=== PATIENT | female | born 1950 | race Caucasian/White ===

== ENCOUNTER 2023-09-05 12:06 | Inpatient (IN) | payer MEDICARE, SELFPAY ==
[~2023-09-05 12:06] MED LIST: Iopamidol-370 76% 500 ML MDV (1 ML CHARGE) ONE
[2023-09-05 12:57] LABS: #Eosinphils 0.1 thou/uL (0.0-0.7); #Monocytes 0.9 thou/uL (0.11-0.59); #Neutrophils 4.6 thou/uL (1.40-6.50); %Basophils 0.4 % (0.0-1.0); %Eosinophils 1.6 % (0.0-10.0); %Lymphocytes 16.2 % (21.0-51.0); %Monocytes 13.4 % (0.0-10.0); %Neutrophils 68.1 % (42.0-75.0); Hematocrit 34.3 % (36.0-47.0); Mean Corpuscular HGB CONC 32.1 g/dL (32.0-36.0); Mean Corpuscular Volume 93.5 fl (78.0-98.0); Platelet Count 246 10x3/uL (130-400); RBC Distribution Width 13.2 % (11.5-14.5); Red Blood Cell (RBC) Count 3.67 mill/uL (4.20-5.40); White Blood Cell (WBC) Count 6.8 10x3/uL (4.8-10.8)
[2023-09-05 13:11] LABS: Prothrombin Time 14.4 sec (12.0-14.7)
[2023-09-05 13:13] LABS: PTT 20.3 sec (22.9-36.1)
[2023-09-05 13:14] LABS: INR-International Normal Ratio 1.1
[2023-09-05 13:18] LABS: Troponin I Less than 0.010 ng/mL (< 0.028)
[2023-09-05 13:33] LABS: ALT (SGPT) 111 U/L (8-55); AST (SGOT) 108 U/L (5-34); Albumin 2.8 g/dL (3.4-4.8); Alkaline Phosphatase 137 U/L (40-110); Anion Gap 16 mmol/L (10-20); BUN (Urea Nitrogen) 23 mg/dL (9.8-20.1); Bilirubin, Total 1.1 mg/dL (0.2-1.2); CK (CPK) 43 U/L (29-168); Calc. Creatinine Clearance 0 mL/min (70-130); Carbon Dioxide 16 mmol/L (23-31); Chloride 108 mmol/L (98-107); Estimated GFR 72; Globulin 2.9 g/dL (2.4-3.5); Glucose 93 mg/dL (80-115); Potassium 4.2 mmol/L (3.5-5.1); Protein, Total 5.7 g/dL (5.8-8.1); Sodium 136 mmol/L (136-145)
[2023-09-05] MEDS ORDERED: Aspirin 300 MG Suppository ONE (15:23)
[2023-09-05] MEDS ORDERED: Ondansetron PF 4 MG/2 ML Vial IVP PRN (15:24)
[2023-09-05] MEDS ORDERED: Glucagon 1 MG/ML KIT IM PRN (16:24)
[2023-09-05] MEDS ORDERED: Dextrose 5% in Water 1,000 ML IV PRN (16:24)
[2023-09-05] MEDS ORDERED: Dextrose 50% Abboject 50 ML SYRINGE SLOW IVP PRN (16:24)
[2023-09-05] MEDS ORDERED: HumaLOG 300 UNITS/3 ML VIAL SC PRN ×2 (16:24)
[2023-09-05 17:26] LABS: Digoxin Less than 0.15 ng/mL (0.8-2.0)
[2023-09-05 17:58] VITALS: BMI 22.8
[2023-09-05] MEDS: Lactated Ringer's 1,000 ML IV SCH ×2 (18:18→20:22)
[2023-09-05 20:23] LABS: Free T4 (Free Thyroxine) Greater than 5.00 ng/dL (0.70-1.48)
[2023-09-05] MEDS ORDERED: Metoprolol Tartrate 5 MG/5 ML VIAL IVP SCH (22:15)
[2023-09-06] MEDS: Lactated Ringer's 1,000 ML IV SCH (05:54)
[2023-09-06 06:43] LABS: #Eosinphils 0.1 thou/uL (0.0-0.7); #Monocytes 0.7 thou/uL (0.11-0.59); #Neutrophils 3.2 thou/uL (1.40-6.50); %Basophils 0.6 % (0.0-1.0); %Eosinophils 2.5 % (0.0-10.0); %Lymphocytes 21.5 % (21.0-51.0); %Monocytes 12.9 % (0.0-10.0); %Neutrophils 62.1 % (42.0-75.0); Hematocrit 28.8 % (36.0-47.0); Hemoglobin 9.1 g/dL (12.0-16.0); Mean Corpuscular HGB CONC 31.6 g/dL (32.0-36.0); Mean Corpuscular Hemoglobin 29.7 pg (27.0-31.0); Mean Corpuscular Volume 94.1 fl (78.0-98.0); Mean Platelet Volume 11.3 fL (7.4-10.4); Platelet Count 244 10x3/uL (130-400); RBC Distribution Width 13.5 % (11.5-14.5); Red Blood Cell (RBC) Count 3.06 mill/uL (4.20-5.40); White Blood Cell (WBC) Count 5.1 10x3/uL (4.8-10.8)
[2023-09-06 06:50] LABS: Hemoglobin A1c 5.6 % (4.0-6.0)
[2023-09-06 07:08] LABS: Anion Gap 12 mmol/L (10-20); BUN (Urea Nitrogen) 20 mg/dL (9.8-20.1); Calc. Creatinine Clearance 69 mL/min (70-130); Carbon Dioxide 21 mmol/L (23-31); Chloride 109 mmol/L (98-107); Potassium 3.8 mmol/L (3.5-5.1); Sodium 138 mmol/L (136-145)
[2023-09-06 07:09] LABS: ALT (SGPT) 90 U/L (8-55); AST (SGOT) 86 U/L (5-34); Albumin 2.6 g/dL (3.4-4.8); Alkaline Phosphatase 114 U/L (40-110); Bilirubin, Total 0.8 mg/dL (0.2-1.2); Calcium 8.8 mg/dL (7.8-10.44); Cardiac Risk 3.4 (Less than 4.5); Cholesterol 74 mg/dl (< 200 Desired); Estimated GFR 77; Globulin 2.4 g/dL (2.4-3.5); Glucose 79 mg/dL (80-115); HDL Cholesterol 22 mg/dL (>60 Neg Risk); LDL Cholesterol, Calculated 36 mg/dL; Triglycerides 79 mg/dL (Less than 150)
[2023-09-06] MEDS ORDERED: Aspirin 300 MG Suppository PR SCH (09:00)
[2023-09-06] MEDS: Dextrose 5%-Lactated Ringers 1,000 ML IV SCH ×3 (09:34→23:39)
[2023-09-06] MEDS ORDERED: Lorazepam 2 MG/ML VIAL SLOW IVP PRN (09:44)
[2023-09-06] MEDS ORDERED: Lorazepam 2 MG/ML VIAL SLOW IVP SCH (09:45)
[2023-09-06] MEDS ORDERED: Digoxin 0.5 MG/2 ML AMP SLOW IVP SCH (11:45)
[2023-09-06] MEDS ORDERED: Metoclopramide HCl 10 MG/2 ML VIAL IVP SCH (12:15)
[2023-09-06] MEDS ORDERED: diphenhydrAMINE 50 MG/ML VIAL IVP SCH (12:15)
[2023-09-06] MEDS: Digoxin 0.5 MG/2 ML AMP SLOW IVP SCH ×2 (17:18→23:54)
[2023-09-07] MEDS: Dextrose 5%-Lactated Ringers 1,000 ML IV SCH ×2 (05:32→22:47)
[2023-09-07] MEDS: Digoxin 0.5 MG/2 ML AMP SLOW IVP SCH (05:33)
[2023-09-07 06:01] LABS: #Eosinphils 0.2 thou/uL (0.0-0.7); #Monocytes 0.7 thou/uL (0.11-0.59); #Neutrophils 2.6 thou/uL (1.40-6.50); %Basophils 0.4 % (0.0-1.0); %Eosinophils 5.2 % (0.0-10.0); %Lymphocytes 24.2 % (21.0-51.0); %Monocytes 14.2 % (0.0-10.0); Hematocrit 30.1 % (36.0-47.0); Hemoglobin 9.8 g/dL (12.0-16.0); Mean Corpuscular HGB CONC 32.6 g/dL (32.0-36.0); Mean Corpuscular Hemoglobin 30.5 pg (27.0-31.0); Mean Corpuscular Volume 93.8 fl (78.0-98.0); Mean Platelet Volume 11.4 fL (7.4-10.4); Platelet Count 264 10x3/uL (130-400); RBC Distribution Width 13.1 % (11.5-14.5); Red Blood Cell (RBC) Count 3.21 mill/uL (4.20-5.40); White Blood Cell (WBC) Count 4.6 10x3/uL (4.8-10.8)
[2023-09-07 06:31] LABS: ALT (SGPT) 88 U/L (8-55); AST (SGOT) 88 U/L (5-34); Albumin 2.3 g/dL (3.4-4.8); Alkaline Phosphatase 115 U/L (40-110); Anion Gap 9 mmol/L (10-20); BUN (Urea Nitrogen) 14 mg/dL (9.8-20.1); Bilirubin, Total 0.8 mg/dL (0.2-1.2); Calc. Creatinine Clearance 75 mL/min (70-130); Calcium 8.8 mg/dL (7.8-10.44); Carbon Dioxide 25 mmol/L (23-31); Chloride 107 mmol/L (98-107); Estimated GFR 86; Globulin 2.5 g/dL (2.4-3.5); Glucose 85 mg/dL (80-115); Protein, Total 4.8 g/dL (5.8-8.1); Sodium 137 mmol/L (136-145)
[2023-09-07] MEDS: Rosuvastatin 20 MG TAB PO SCH (08:41)
[2023-09-07] MEDS: Aspirin Chewable 81 MG TAB PO SCH (08:41)
[2023-09-08] MEDS ORDERED: Melatonin 3 MG TAB PO PRN (01:13)
[2023-09-08 05:08] LABS: #Eosinphils 0.3 thou/uL (0.0-0.7); #Monocytes 0.6 thou/uL (0.11-0.59); %Basophils 0.7 % (0.0-1.0); %Eosinophils 7.7 % (0.0-10.0); %Lymphocytes 25.7 % (21.0-51.0); %Monocytes 15.5 % (0.0-10.0); %Neutrophils 50.2 % (42.0-75.0); Hematocrit 30.7 % (36.0-47.0); Hemoglobin 9.7 g/dL (12.0-16.0); Mean Corpuscular HGB CONC 31.6 g/dL (32.0-36.0); Mean Corpuscular Hemoglobin 29.1 pg (27.0-31.0); Mean Corpuscular Volume 92.2 fl (78.0-98.0); Mean Platelet Volume 11.4 fL (7.4-10.4); Platelet Count 255 10x3/uL (130-400); RBC Distribution Width 12.6 % (11.5-14.5); Red Blood Cell (RBC) Count 3.33 mill/uL (4.20-5.40)
[2023-09-08 05:31] LABS: ALT (SGPT) 91 U/L (8-55); AST (SGOT) 86 U/L (5-34); Albumin 2.4 g/dL (3.4-4.8); Alkaline Phosphatase 116 U/L (40-110); Anion Gap 10 mmol/L (10-20); BUN (Urea Nitrogen) 11 mg/dL (9.8-20.1); Bilirubin, Total 0.7 mg/dL (0.2-1.2); Calc. Creatinine Clearance 77 mL/min (70-130); Calcium 8.9 mg/dL (7.8-10.44); Carbon Dioxide 27 mmol/L (23-31); Chloride 105 mmol/L (98-107); Estimated GFR 88; Globulin 2.4 g/dL (2.4-3.5); Glucose 94 mg/dL (80-115); Potassium 3.7 mmol/L (3.5-5.1); Protein, Total 4.8 g/dL (5.8-8.1); Sodium 138 mmol/L (136-145)
[2023-09-08] MEDS: Aspirin Chewable 81 MG TAB PO SCH (09:59)
[2023-09-08] MEDS: Rosuvastatin 20 MG TAB PO SCH (09:59)
[2023-09-08] MEDS: Acetaminophen 500 MG TAB PO SCH ×2 (13:40→18:50)
[2023-09-08] MEDS: Dextrose 5%-Lactated Ringers 1,000 ML IV SCH (18:53)
[2023-09-09] MEDS: Acetaminophen 500 MG TAB PO SCH ×4 (01:07→19:23)
[2023-09-09 04:57] LABS: #Eosinphils 0.4 thou/uL (0.0-0.7); #Monocytes 0.6 thou/uL (0.11-0.59); #Neutrophils 1.8 thou/uL (1.40-6.50); %Eosinophils 9.4 % (0.0-10.0); %Lymphocytes 29.1 % (21.0-51.0); %Monocytes 14.2 % (0.0-10.0); %Neutrophils 46.3 % (42.0-75.0); Hematocrit 32.8 % (36.0-47.0); Hemoglobin 10.6 g/dL (12.0-16.0); Mean Corpuscular HGB CONC 32.3 g/dL (32.0-36.0); Mean Corpuscular Volume 92.9 fl (78.0-98.0); Mean Platelet Volume 10.8 fL (7.4-10.4); Platelet Count 257 10x3/uL (130-400); RBC Distribution Width 12.6 % (11.5-14.5); Red Blood Cell (RBC) Count 3.53 mill/uL (4.20-5.40)
[2023-09-09 05:27] LABS: ALT (SGPT) 105 U/L (8-55); AST (SGOT) 107 U/L (5-34); Albumin 2.7 g/dL (3.4-4.8); Alkaline Phosphatase 125 U/L (40-110); Anion Gap 8 mmol/L (10-20); BUN (Urea Nitrogen) 8 mg/dL (9.8-20.1); Bilirubin, Total 0.7 mg/dL (0.2-1.2); Calc. Creatinine Clearance 78 mL/min (70-130); Calcium 9.1 mg/dL (7.8-10.44); Carbon Dioxide 27 mmol/L (23-31); Chloride 106 mmol/L (98-107); Estimated GFR 90; Globulin 2.6 g/dL (2.4-3.5); Glucose 93 mg/dL (80-115); Potassium 3.8 mmol/L (3.5-5.1); Protein, Total 5.3 g/dL (5.8-8.1); Sodium 137 mmol/L (136-145)
[2023-09-09] MEDS ORDERED: Non-Formulary Item 1 EACH (Losartan [Cozaar] 50 MG Tab) PO SCH (09:00)
[2023-09-09] MEDS: Polyethylene Glycol 3350 17 GM Packet PO SCH (09:05)
[2023-09-09] MEDS: Aspirin Chewable 81 MG TAB PO SCH (09:05)
[2023-09-09] MEDS: Rosuvastatin 20 MG TAB PO SCH (09:05)
[2023-09-09] MEDS: Losartan 25 MG TAB PO SCH (09:06)
[2023-09-10] MEDS: Acetaminophen 500 MG TAB PO SCH ×2 (01:15→06:13)
[2023-09-10 04:21] LABS: #Eosinphils 0.4 thou/uL (0.0-0.7); #Monocytes 0.7 thou/uL (0.11-0.59); %Basophils 0.7 % (0.0-1.0); %Eosinophils 8.1 % (0.0-10.0); %Lymphocytes 29.5 % (21.0-51.0); %Monocytes 15.5 % (0.0-10.0); Hematocrit 30.3 % (36.0-47.0); Hemoglobin 10.1 g/dL (12.0-16.0); Mean Corpuscular HGB CONC 33.3 g/dL (32.0-36.0); Mean Corpuscular Hemoglobin 29.6 pg (27.0-31.0); Mean Platelet Volume 11.2 fL (7.4-10.4); Platelet Count 269 10x3/uL (130-400); RBC Distribution Width 12.8 % (11.5-14.5); Red Blood Cell (RBC) Count 3.41 mill/uL (4.20-5.40); White Blood Cell (WBC) Count 4.3 10x3/uL (4.8-10.8)
[2023-09-10 04:54] LABS: ALT (SGPT) 109 U/L (8-55); AST (SGOT) 101 U/L (5-34); Albumin 2.7 g/dL (3.4-4.8); Alkaline Phosphatase 119 U/L (40-110); Anion Gap 10 mmol/L (10-20); BUN (Urea Nitrogen) 10 mg/dL (9.8-20.1); Bilirubin, Total 0.8 mg/dL (0.2-1.2); Calc. Creatinine Clearance 75 mL/min (70-130); Carbon Dioxide 27 mmol/L (23-31); Chloride 105 mmol/L (98-107); Estimated GFR 86; Globulin 2.5 g/dL (2.4-3.5); Glucose 91 mg/dL (80-115); Potassium 3.8 mmol/L (3.5-5.1); Protein, Total 5.2 g/dL (5.8-8.1); Sodium 138 mmol/L (136-145)
[2023-09-10 05:45] LABS: Mean Corpuscular Volume 88.9 fl (78.0-98.0)
[2023-09-10 07:40] VITALS: TEMP 97.3
[2023-09-10] MEDS ORDERED: Acetaminophen 500 MG TAB PO PRN (08:24)
[2023-09-10] MEDS: Losartan 25 MG TAB PO SCH (09:11)
[2023-09-10] MEDS: Aspirin Chewable 81 MG TAB PO SCH (09:11)
[2023-09-10] MEDS: Rosuvastatin 20 MG TAB PO SCH (09:11)
[2023-09-10] MEDS: Polyethylene Glycol 3350 17 GM Packet PO SCH (09:12)
[2023-09-10 11:57] VITALS: BP 92/51
[2023-09-10] MEDS: Dextrose 5%-Lactated Ringers 1,000 ML IV SCH ×2 (12:37→12:38)
== END 2023-09-10 16:00 | DRG 65 ==
LOC: ERS 12:06 → 2SE 15:29
PROVIDERS: ADMIT Student in an Organized Health Care Education/Training Program; ATTEND Student in an Organized Health Care Education/Training Program
DX: I63.9 Cerebral infarction, unspecified (principal); G81.91 Hemiplegia, unspecified affecting right dominant side; I10 Essential (primary) hypertension; R47.01 Aphasia; G43.909 Migraine, unspecified, not intractable, without status migrainosus; F41.9 Anxiety disorder, unspecified; F17.210 Nicotine dependence, cigarettes, uncomplicated; I48.91 Unspecified atrial fibrillation; M79.7 Fibromyalgia; D64.9 Anemia, unspecified; E05.90 Thyrotoxicosis, unspecified without thyrotoxic crisis or storm; E11.649 Type 2 diabetes mellitus with hypoglycemia without coma; Z66 Do not resuscitate; I08.3 Combined rheumatic disorders of mitral, aortic and tricuspid valves; Z98.890 Other specified postprocedural states
CPT/HCPCS: 36415; 36416; 70450; 70496; 70498; 70551; 71045; 74230; 76536; 80053; 80061; 80162; 82550; 83036; 84439; 84443; 84445; 84481; 84484; 85025; 85610; 85730; 93005; 93306; J1160; J1200; J2060; J2765; J7120; Q9967